=== PATIENT | male | born 1955 | race American Indian/Alaskan Native ===

== ENCOUNTER 2019-11-08 18:36 | Emergency (ER) | payer SELFPAY ==
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
== END 2019-11-09 07:00 ==
LOC: ED 18:36
DX: I46.9 Cardiac arrest, cause unspecified (principal)
CPT/HCPCS: 92950